=== PATIENT | male | born 1950 | race Caucasian/White ===

== ENCOUNTER 2022-07-12 15:22 | Emergency (ER) | payer OTHER ==
--- NOTE | 2022-07-12 15:52 | RAD REPORT ---
EXAM DESCRIPTION: CT - Ct Stroke Brain Wo Cont - 07/12/2022 3:43 pm CLINICAL HISTORY: STROKE ALERT COMPARISON: No comparisons TECHNIQUE: Noncontrast head CT images ad were obtained without IV contrast. Multiplanar reformats we re generated and reviewed. All CT scans are performed using dose optimization technique as appropriate and may include automated exposure control or mA/KV adjustment according to patient size. FINDINGS: No intracranial hemorrhage, mass, or edema. Midline structures are unremarkable. Normal ventricular caliber for age. Bello-white matter differentiation is preserved, without evidence of acute infarct. No abnormal extra- axial fluid collections. Mastoid air cells and visualized portions of the paranasal sinuses are clear. No acute bony findings. IMPRESSION: No evidence of an acute intracranial process. The findings were communicated to Josh Zuluaga on 07/12/2022 at 15:42 hours.
[2022-07-12 15:56] LABS: Absolute Lymphocytes (CBC) 1.9 K/uL (0.7-4.9); Hematocrit 40.1 % (39.6-49.0); Lymphocytes % 21.7 % (15.3-44.8); MCV 90.1 fL (80-100); MPV 6.9 fL (7.6-11.3); RBC Red Blood Cell Count 4.45 M/uL (4.33-5.43)
[2022-07-12 16:11] LABS: Protime INR 0.93
[2022-07-12] MEDS ORDERED: TENECTEPLASE 50 MG/10 ML VIAL IV ONE (16:14)
[2022-07-12 16:17] LABS: Potassium 4.2 mEq/L (3.5-5.1); Troponin High Sensitivity 8.2 pg/mL (<58.9)
--- NOTE | 2022-07-12 16:23 | ER ---
Nurse's Notes [facility] Name: Ronak Feliz Age: 72 yrs Sex: Male : 1950 Arrival Date: 07/12/2022 Time: 15:26 Bed 13 Private MD: Diagnosis: Ischemic stroke Presentation: 07/12 15:32 Chief complaint: EMS states: client went to sit down in the recliner and take a nap at kc6 1330 when he awake he reported leg arm, left hand, and left leg weakness, upon EMS arrival client had regained function but still reported left hand weakness. 15:32 Method Of Arrival: EMS: [facility] 15:32 Coronavirus screen: Vaccine status: Patient reports receiving the 2nd dose of the covid kc6 vaccine. Ebola Screen: No symptoms or risks identified at this time. Initial Sepsis Screen: Does the patient meet any 2 criteria? No. Patient's initial sepsis screen is negative. Does the patient have a suspected source of infection? No. Patient's initial sepsis screen is negative. 15:32 Risk Assessment: Do you want to hurt yourself or someone else? Patient reports no kc desire to harm self or others. Onset of symptoms was July 12, 2022 at 13:30. 15:32 Acuity: FARIDA 2 [facility] 15:32 An acute neurological deficit is present. The charge nurse has been notified. The 6 patients blood glucose was checked before arriving to the hospital and was found to be normal. Triage Assessment: 15:32 The onset of the patients symptoms was July 12, 2022 at 13:30. General: Appears in no kc6 apparent distress. comfortable, Behavior is calm, cooperative, appropriate for age. Pain: Denies pain. 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 Weakness in left hand(s) Gait is steady, Speech is normal, Facial droop on left, Pupils are PERRLA, Reports weakness in left hand. Stroke Activation: Symptom onset < 3 hours Physician: Stroke Attending; Name: ; Notified At: ; Arrived At: Physician: Chief Stroke Resident; Name: ; Notified At: ; Arrived At: Physician: Stroke Resident; Name: ; Notified At: ; Arrived At: Physician: ED Attending; Name: ; Notified At: ; Arrived At: Physician: ED Resident; Name: ; Notified At: ; Arrived At: Historical: - Allergies: 15:32 No Known Allergies; kc6 - PMHx: 15:32 Hypertensive disorder; kc6 - PSHx: 15:32 cardiac stents x3; kc6 - Immunization history:: Client reports receiving the 2nd dose of the Covid vaccine, Flu vaccine is not up to date. - Social history:: Smoking status: Patient denies any tobacco usage or history of. Screenin:32 [facility] ED Fall Risk Assessment (Adult) History of falling in the last 3 months, kc6 including since admission No falls in past 3 months (0 pts) Confusion or Disorientation No (0 pts) Intoxicated or Sedated No (0 pts) Impaired Gait No (0 pts) Mobility Assist Device Used No (0 pt) Altered Elimination No (0 pt) Score/Fall Risk Level 0 - 2 = Low Risk Oriented to surroundings, Maintained a safe environment, Educated pt \T\ family on fall prevention, incl call for assistance when getting out of bed, Assessed \T\ reinforced patient's understanding of fall precautions, Hourly rounding (assess needs \T\ fall precautionary measures) done. Abuse screen: Denies threats or abuse. Denies injuries from another. Nutritional screening: No deficits noted. Tuberculosis screening: No symptoms or risk factors identified. Assessment: 15:26 VAN Scoring: Arm Drift: Patients demonstrates NO arm weakness. Patient is VAN Negative. kc6 Vital Signs: 15:32 BP 167 / 88; Pulse 70; Resp 18 S; Temp 98.3(O); Pulse Ox 99% on R/A; Weight 77.11 kg kc6 (R); Height 5 ft. 7 in. (R); Pain 0/10; 15:32 Body Mass Index 26.63 (77.11 kg, 170.18 cm) kc6 15:32 Pain Scale: Adult kc6 NIH Stroke Scale Scores: 15:26 NIHSS Score: 1 kc6 ED Course: 15:26 Patient arrived in ED. kj1 15:26 Arm band placed on. kc6 15:27 Lora South RN is Primary Nurse. kc6 15:32 Patient has correct armband on for positive identification. Bed in low position. Call kc6 light in reach. Side rails up X2. Adult w/ patient. 15:33 Josh Zuluaga MD is Attending Physician. kdr 15:38 Triage completed. kc6 15:45 CT Stroke Brain w/o Contrast In Process Unspecified. EDMS 15:55 Stroke CXR 1 View In Process Unspecified. EDMS 16:16 1458 [facility] \T\ 1604 INIAITIED TRANSFER. kj1 Administered Medications: No medications were administered Point of Care Testing: Blood Glucose: 15:41 Blood Glucose: 100 mg/dL; kc6 Ranges: Outcome: 16:23 ER care complete, transfer ordered by . kdr NIH Stroke Scale - NIH Stroke Score Date: 07/12/2022 Time: 15:26 Total Score = 1 10. Dysarthria (speech clarity - read or repeat words) - 0(Normal) 11. Extinction and Inattention (visual/tactile/auditory/spatial/personal) - 0(No abnormality) 1a. Level of Consciousness (LOC) - 0(Alert) 1b. Level of Consciousness (LOC) (Month \T\ Age) - 0(Both) 1c. LOC Commands (Open \T\ Closes Eyes/Facialist) - 0(Both) 2. Best Gaze (Lateral Gaze Paresis) - 0(Normal) 3. Visual Field Loss - 0(No visual loss) 4. Facial Palsy - 1(Minor Paralysis) 5a. Left Arm: Motor (10-second hold) - 0(No drift) 5b. Right Arm: Motor (10-second hold) - 0(No drift) 6a. Left Leg: Motor (5-second hold - always test supine) - 0(No drift) 6b. Right Leg: Motor (5-second hold - always test supine) - 0(No drift) 7. Limb Ataxia (finger/nose \T\ heel/christy - test with eyes open) - 0(Absent) 8. Sensory Loss (pinprick arms/legs/face) - 0(Normal) 9. Best Language: Aphasia (description/naming/reading) - 0(No aphasia) Initials: kc6 Signatures: Dispatcher [employer] EDMS Josh Zuluaga MD MD kdr Jessica Reddy kj1 Lora South RN RN kc6
--- NOTE | 2022-07-12 16:24 | EDPHYS ---
Physician Documentation [facility] Name: Ronak Feliz Age: 72 yrs Sex: Male : 1950 Arrival Date: 07/12/2022 Time: 15:26 Bed 13 Private MD: ED Physician Josh Zuluaga HPI: 07/12 16:23 This 72 yrs old Male presents to ER via EMS with complaints of S/S of Possible Stroke. kdr Historical: - Allergies: 15:32 No Known Allergies; kc6 - PMHx: 15:32 Hypertensive disorder; kc6 - PSHx: 15:32 cardiac stents x3; kc6 - Immunization history:: Client reports receiving the 2nd dose of the Covid vaccine, Flu vaccine is not up to date. - Social history:: Smoking status: Patient denies any tobacco usage or history of. Vital Signs: 15:32 BP 167 / 88; Pulse 70; Resp 18 S; Temp 98.3(O); Pulse Ox 99% on R/A; Weight 77.11 kg kc6 (R); Height 5 ft. 7 in. (R); Pain 0/10; 15:32 Body Mass Index 26.63 (77.11 kg, 170.18 cm) kc6 15:32 Pain Scale: Adult kc6 NIH Stroke Scale Scores: 15:26 NIHSS Score: 1 kc6 MDM: 16:21 Data reviewed: vital signs, nurses notes, lab test result(s), radiologic studies. kdr Management of patient was discussed with the following: Beef Trimmer: Dr. Denis at [facility]. 16:23 Patient medically screened. kdr 07/12 15:34 Order name: EKG; Complete Time: 15:35 kdr 07/12 15:34 Order name: Accucheck; Complete Time: 15:45 kdr 07/12 15:34 Order name: Cardiac monitoring; Complete Time: 15:45 kdr 07/12 15:34 Order name: IV Saline Lock; Complete Time: 15:45 kdr 07/12 15:34 Order name: Labs collected and sent; Complete Time: 15:45 kdr 07/12 15:34 Order name: NPO; Complete Time: 15:45 kdr 07/12 15:34 Order name: O2 Per Protocol; Complete Time: 15:45 kdr 07/12 15:34 Order name: O2 Sat Monitoring; Complete Time: 15:45 kdr 07/12 15:34 Order name: Stroke Swallow Screen; Complete Time: 15:45 kdr 07/12 15:46 Order name: CT Head Angio kdr 07/12 15:34 Order name: Stroke CXR 1 View kdr 07/12 15:34 Order name: EKG - Nurse/Tech; Complete Time: 15:58 kdr 07/12 15:53 Order name: Glucose, Ancillary Testing; Complete Time: 16:01 EDMS 07/12 15:34 Order name: CT Stroke Brain w/o Contrast; Complete Time: 16:01 kdr 07/12 15:34 Order name: CBC with Diff kdr 07/12 15:34 Order name: Protime (+inr) kdr 07/12 15:34 Order name: Ptt, Activated kdr 07/12 16:10 Order name: SARS RAPID kj1 07/12 15:34 Order name: Basic Metabolic Panel kdr 07/12 15:34 Order name: High Sensitivity Troponin kdr Administered Medications: No medications were administered Point of Care Testing: Blood Glucose: 15:41 Blood Glucose: 100 mg/dL; kc6 Ranges: Critical Glucose Levels:Adult <50 mg/dl or >400 mg/dl <40 mg/dl or >180 mg/dl Disposition Summary: 07/12/22 16:23 Transfer Ordered Accepting Physician: Dr. Denis kdr Transfer Location: [facility] kdr Reason: Higher level of care kdr Condition: Serious kdr Problem: new kdr Symptoms: have improved kdr Diagnosis - Ischemic stroke kdr Forms: - Medication Reconciliation Form kdr - SBAR form kdr NIH Stroke Scale - NIH Stroke Score Date: 07/12/2022 Time: 15:26 Total Score = 1 10. Dysarthria (speech clarity - read or repeat words) - 0(Normal) 11. Extinction and Inattention (visual/tactile/auditory/spatial/personal) - 0(No abnormality) 1a. Level of Consciousness (LOC) - 0(Alert) 1b. Level of Consciousness (LOC) (Month \T\ Age) - 0(Both) 1c. LOC Commands (Open \T\ Closes Eyes/Oceanography Professor) - 0(Both) 2. Best Gaze (Lateral Gaze Paresis) - 0(Normal) 3. Visual Field Loss - 0(No visual loss) 4. Facial Palsy - 1(Minor Paralysis) 5a. Left Arm: Motor (10-second hold) - 0(No drift) 5b. Right Arm: Motor (10-second hold) - 0(No drift) 6a. Left Leg: Motor (5-second hold - always test supine) - 0(No drift) 6b. Right Leg: Motor (5-second hold - always test supine) - 0(No drift) 7. Limb Ataxia (finger/nose \T\ heel/christy - test with eyes open) - 0(Absent) 8. Sensory Loss (pinprick arms/legs/face) - 0(Normal) 9. Best Language: Aphasia (description/naming/reading) - 0(No aphasia) Initials: kc6 Signatures: Dispatcher [employer] Josh Moulton MD MD kdr Campbell, Kaitlyn, RN RN kc6
[2022-07-12 16:49] LABS: SARS-CoV-2 Antigen Rapid Res Negative (Negative)
--- NOTE | 2022-07-12 16:59 | RAD REPORT ---
EXAM DESCRIPTION: Leonid Single View07/12/2022 3:53 pm CLINICAL HISTORY: left sided weakness COMPARISON: No comparisons TECHNIQUE: Portable AP view of the chest. FINDINGS: The lungs are clear. No pneumothorax or effusion. The cardiomediastinal contours are unrem arkable. IMPRESSION: No acute cardiopulmonary process.
--- NOTE | 2022-07-12 17:37 | RAD REPORT ---
EXAM DESCRIPTION: CT - Head angio - 07/12/2022 5:08 pm CLINICAL HISTORY: WEAKNESS COMPARISON: Ct Stroke Brain Wo Cont dated 07/12/2022 TECHNIQUE: Axial CT angiography images of the head was performed with multiplanar and maximum intens ity projection reconstructions. Images performed following intravenous administration of 95 mLmL Isov ue 370. All CT scans are performed using dose optimization technique as appropriate and may include automated exposure control or mA/KV adjustment according to patient size. FINDINGS: No evidence of large vessel occlusion. No evidence of aneurysm or dissection flap is detec prateek. No flow-limiting stenosis or vascular malformation identified. Antegrade flow is seen in the vertebral arteries. The vertebral arteries are codominant. The visualized dural venous sinuses are grossly patent. IMPRESSION: No evidence of large vessel occlusion or flow-limiting stenosis.
--- NOTE | 2022-07-13 17:36 | EKG ---
Test Date: 2022-07-12 Test Time: 15:50:49 Utility Tender Carding: VIVIANA MEASUREMENT RESULTS: Intervals: Rate: 69 DC: 194 QRSD: 80 QT: 398 QTc: 426 [place]: P: 65 DC: 194 QRS: 39 T: 63 INTERPRETIVE STATEMENTS: Normal sinus rhythm Normal ECG No previous ECG available for comparison Electronically Signed On 07-13-22 17:34:59 CDT by Lencho Gaxiola
== END 2022-07-12 17:30 | disposition short-term general hospital (02) ==
LOC: ER 15:22
DX: I63.9 Cerebral infarction, unspecified (principal); I10 Essential (primary) hypertension; Z95.5 Presence of coronary angioplasty implant and graft; Z20.822 Contact with and (suspected) exposure to COVID-19
CPT/HCPCS: 85025; 80048; 36415; 85610; 82947; 85730; 84484; 70496; 70450; 71045; 87811; Q9967; J3101; 93005

== ENCOUNTER 2024-04-12 20:05 | Emergency (ER) | payer OTHER ==
[2024-04-12 20:35] LABS: Absolute Basophils 0.1 K/uL (0-0.5); Absolute Eosinophils 0.1 K/uL (0-0.5); Absolute Monocytes 0.9 K/uL (0.1-1.3); Absolute Neutrophil 5.7 K/uL (1.8-8.0); Basophils % 0.7 % (0-1.3); Eosinophils % 1.3 % (0-4.4); Hematocrit 38.6 % (39.6-49.0); Lymphocytes % 30.7 % (15.3-44.8); MCH 30.1 pg (27.0-35.0); MCHC 33.7 g/dL (32.0-36.0); MCV 89.3 fL (80-100); MPV 7.4 fL (7.6-11.3); Monocytes % 9.3 % (3.3-12.3); Platelets 269 thou/uL (152-406); RBC Red Blood Cell Count 4.32 M/uL (4.33-5.43)
[2024-04-12 20:41] LABS: Protime INR 0.98
[2024-04-12 20:55] LABS: ALT/SGPT 19 U/L (16-61); AST/SGOT 20 U/L (15-37); Albumin 3.6 g/dL (3.4-5.0); Albumin/Globulin Ratio 1.1 (1.1-1.8); Alkaline Phosphatase 57 U/L (45-117); Anion Gap 8.6 mEq/L (5.0-15.0); BUN Blood Urea Nitrogen 25 mg/dL (7-18); Bicarbonate 25 mEq/L (21-32); Bilirubin Total 0.4 mg/dL (0.2-1.0); Globulin 3.4 g/dL (2.3-3.5); Glomerular Filtration Rate 52 ml/min (=/>90); Glucose Level 139 mg/dL (74-106); Magnesium 1.7 mg/dL (1.6-2.4); NT PRO-BNP 1495 pg/mL (<450); Potassium 3.6 mEq/L (3.5-5.1); Sodium Level 141 mEq/L (136-145); Troponin High Sensitivity 16.5 pg/mL (<58.9)
[2024-04-12 21:11] LABS: Bilirubin Direct < 0.2 mg/dL (0-0.2); Bilirubin Indirect, Calculated 0.2 mg/dL (0.2-0.8)
--- NOTE | 2024-04-12 22:08 | RAD REPORT ---
EXAMINATION: ONE VIEW CHEST XR CLINICAL INDICATION: Male, 74 years old.,CHEST PAIN TECHNIQUE: Frontal chest projection is submitted. Examination is limited by patient positioning and t echnique. COMPARISON: 07/12/2022 FINDINGS: The lungs are well inflated and clear. No pneumothorax or sizable effusion. The heart is normal in s ize. Mediastinal contours are unremarkable. Implantable rhythm monitoring device present. IMPRESSION: No acute intrathoracic abnormalities.
--- NOTE | 2024-04-12 22:24 | RAD REPORT ---
EXAM: US Carotid Artery Bilateral CLINICAL INDICATION: right carotid pulses TECHNIQUE: Real-time grayscale, color flow, and spectral Doppler sonographic images were obtained of the extracranial carotid system using a linear transducer. Arterial peak systolic velocities are recorded as follows. COMPARISON: No prior exam. FINDINGS: RIGHT: Common carotid artery: 71 cm/s Internal carotid artery: 100 cm/s Right ICA/CCA ratio: 1.4 Plaque Mild irregular partially calcified plaque at the bulb External carotid artery: 108 cm/s Vertebral artery: Antegrade LEFT: Common carotid artery: 75 cm/s Internal carotid artery: 96 cm/s Left ICA/CCA ratio: 1.28 Plaque mild smooth or dominantly hypoechoic plaque at the bulb External carotid artery: 117 cm/s Vertebral artery: Antegrade IMPRESSION: No hemodynamically significant stenosis (greater than 50%) within the extracranial internal carotid a rteries. The degrees of stenosis, if any, are quantified according to the consensus statement of the Society o f Radiologists in Ultrasound (SRUS). Please refer to Justin E, Tan C, Reading G et al. Carotid Artery Stenosis: Belol-Scale and Doppler US Diagnosis--Society of Radiologists in Ultrasound Consensus Conference. Radiology. 2003;229(2):340-6. doi:10.1148/radiol.[id number]
--- NOTE | 2024-04-12 23:07 | EDPHYS ---
Physician Documentation [facility] Name: Madhu Theodore Age: 74 yrs Sex: Male : 1950 Arrival Date: 04/12/2024 Time: 20:05 Bed 4 Private MD: Izzy Lutz; Elder Otero ED Physician Jani Bassett HPI: 04/12 20:12 This 74 yrs old Male presents to ER via Unassigned with complaints of Afib. sp4 04/13 20:06 74-year-old male presents with complaint of palpitations. Patient was at the dental sp4 office today and his heart rate was registering at 30 bpm. Patient denied any other symptoms he denied dizziness or chest pain. . Historical: - Allergies: 04/12 20:31 No Known Allergies; vc1 - Home Meds: 20:31 losartan 100 mg oral tablet nightly [Active]; Brilinta 90 mg oral tablet 2 times per vc1 day [Active]; metoprolol succinate 50 mg oral Tablet, Extended Release 24 hr nightly [Active]; atorvastatin 80 mg oral tablet every day at bedtime [Active]; omeprazole 40 mg Oral capsule,delayed release (e.c.) nightly [Active]; aspirin 81 mg Oral capsule nightly [Active]; - PMHx: 20:31 Hypertensive disorder; Stroke; Atrial fibrillation; vc1 - PSHx: 20:31 cardiac stents x3; Loop Recorder (June 2022); vc1 - Immunization history:: Client reports receiving the 2nd dose of the Covid vaccine, Flu vaccine is not up to date. - Infectious Disease History:: Denies. - Social history:: Smoking status: Patient denies any tobacco usage or history of. - Family history:: not pertinent. ROS: 04/13 20:06 Constitutional: Negative for fever, chills, and weight loss, positive for palpitations sp4 All other systems are negative, Exam: 20:06 Constitutional: This is a well developed, well nourished patient who is awake, alert, sp4 and in no acute distress. Head/Face: Normocephalic, atraumatic. Eyes: Pupils equal round and reactive to light, extra-ocular motions intact. Lids and lashes normal. Conjunctiva and sclera are not injected. Cornea within normal limits. Periorbital areas with no swelling, redness, or edema. ENT: Nares patent. No nasal discharge, no septal abnormalities noted. Tympanic membranes are normal and external auditory canals are clear. Oropharynx with no redness, swelling, or masses, exudates, or evidence of obstruction, uvula midline. Mucous membranes moist. Neck: Trachea midline, no thyromegaly or masses palpated, and no cervical lymphadenopathy. Supple, full range of motion without nuchal rigidity, or vertebral point tenderness. Chest/axilla: Normal chest wall appearance and motion. Nontender with no deformity. No lesions are appreciated. Cardiovascular: Regular rate and rhythm with a normal S1 and S2. No gallops, murmurs, or rubs. Normal PMI, no JVD. No pulse deficits. Respiratory: Lungs have equal breath sounds bilaterally, clear to auscultation and percussion. No rales, rhonchi or wheezes noted. No increased work of breathing, no retractions or nasal flaring. Abdomen/GI: Soft, with normal bowel sounds. No distension or tympany. No guarding or rebound. No evidence of tenderness throughout. Back: No spinal tenderness. No costovertebral tenderness. Skin: Warm, dry with normal turgor. Normal color with no rashes, no lesions, and no evidence of cellulitis. MS/ Extremity: Pulses equal, no cyanosis. Neurovascular intact. Full, normal range of motion. Neuro: Awake and alert, GCS 15, oriented to person, place, time, and situation. Cranial nerves II-XII grossly intact. Motor strength 5/5 in all extremities. Sensory grossly intact. Psych: Awake, alert, with orientation to person, place and time. Behavior, mood, and affect are within normal limits 20:06 ECG was reviewed by the Attending Physician. EKG at 2022 sinus rhythm with multiple unifocal PVCs in a bigeminy pattern Vital Signs: 04/12 20:27 BP 160 / 71; Pulse 38; Resp 20; Pulse Ox 100% ; Weight 83.91 kg; Height 5 ft. 8 in. ; vc1 Pain 0/10; 21:24 BP 136 / 77; Pulse 70; Pulse Ox 97% on R/A; MAP 94 mmHg; Pain 0/10; tm6 22:00 BP 124 / 60; Pulse 72; Resp 16; Pulse Ox 97% on R/A; dd2 23:15 BP 134 / 65; Pulse 70; Resp 16; Temp 98.2(O); Pulse Ox 98% on R/A; dd2 20:27 Body Mass Index 28.13 (83.91 kg, 172.72 cm) vc1 20:27 Pain Scale: Adult vc1 21:24 Pain Scale: Adult tm6 Renzo Coma Score: 04/13 20:06 Eye Response: spontaneous(4). Motor Response: obeys commands(6). Verbal Response: sp4 oriented(5). Total: 15. MDM: 04/12 20:13 Medical Screening Exam initiated sp4 23:05 ED course: RADIOLOGYSERVICES REPORT Name: MADHU THEODORE Acct Number: s :1950 Age:74 Sex:M Ord Phys: Jani Bassett MD Unit Number: [id number] Prim Care Dr: Elder Otero MD Status: REG ER ER Exam Date: 04/12/24 EXAM: US Carotid Artery Bilateral CLINICAL INDICATION: right carotid pulses TECHNIQUE: Real-time grayscale, color flow, and spectral Doppler sonographic images were obtained of the extracranial carotid system using a linear transducer. Arterial peak systolic velocities are recorded as follows. COMPARISON: No prior exam. FINDINGS: RIGHT: Common carotid artery: 71 cm/s Internal carotid artery: 100 cm/s Right ICA/CCA ratio: 1.4 Plaque Mild irregular partially calcified plaque at the bulb External carotid artery: 108 cm/s Vertebral artery: Antegrade LEFT: Common carotid artery: 75 cm/s Internal carotid artery: 96 cm/s Left ICA/CCA ratio: 1.28 Plaque mild smooth or dominantly hypoechoic plaque at the bulb External carotid artery: 117 cm/s Vertebral artery: Antegrade IMPRESSION: No hemodynamically significant stenosis (greater than 50%) within the extracranial internal carotid arteries. . ED course: EXAMINATION: ONE VIEW CHEST XR CLINICAL INDICATION: Male, 74 years old.,CHEST PAIN TECHNIQUE: Frontal chest projection is submitted. Examination is limited by patient positioning and technique. COMPARISON: 07/12/2022 FINDINGS: The lungs are well inflated and clear. No pneumothorax or sizable effusion. The heart is normal in size. Mediastinal contours are unremarkable. Implantable rhythm monitoring device present. IMPRESSION: No acute intrathoracic abnormalities.. 04/13 20:06 Differential diagnosis: arrythmia, dehydration, stress disorder, PVCs. Data reviewed: sp4 vital signs, nurses notes, lab test result(s), EKG, radiologic studies, plain films. Consideration of Admission/Observation Escalation of care including admission/observation considered. ED course: Patient was discussed with his caul puller Dr. Mallory Smith who advised that frequent PVCs are not dangerous and patient may be discharged from the emergency room. Dr. Tejada office will contact patient in the morning for follow up appointment. . 04/12 20:13 Order name: Basic Metabolic Panel; Complete Time: 22:00 sp4 04/12 20:13 Order name: CBC with Diff; Complete [facility]: 22:00 [facility] 04/12 20:13 Order name: LFT's; Complete Time: 22:00 4 04/12 20:13 Order name: Magnesium; Complete Time: 22:00 4 04/12 20:13 Order name: NT PRO-BNP; Complete Time: 22:00 4 04/12 20:13 Order name: PT-INR; Complete Time: 22:00 4 04/12 20:13 Order name: Troponin HS; Complete Time: 22:00 [facility] 04/12 20:13 Order name: XRAY Chest (1 view); Complete Time: 22:57 sp4 04/12 20:52 Order name: Carotid Artery Bilateral US; Complete Time: 22:57 4 04/12 20:13 Order name: Cardiac monitoring; Complete Time: 20:26 [facility] 04/12 20:13 Order name: EKG - Nurse/Tech; Complete Time: 20:26 4 04/12 20:13 Order name: IV Saline Lock; Complete Time: 20:26 4 04/12 20:13 Order name: Labs collected and sent; Complete Time: 20:26 4 04/12 20:13 Order name: O2 Per Protocol; Complete Time: 20:26 4 04/12 20:13 Order name: O2 Sat Monitoring; Complete Time: 20:26 sp4 EC:06 Rate is 80 beats/min. Rhythm is regular, Sinus Rhythm with Unifocal PVCs. QRS [place] is sp4 Normal. [place] interval is normal. QRS interval is normal. QT interval is normal. No Q waves. T waves are Normal. No ST changes noted. Clinical impression: No evidence of ischemia. Interpreted by me. Reviewed by me. Administered Medications: No medications were administered Disposition Summary: 04/12/24 23:06 Discharge Ordered Problem: new sp4 Symptoms: have improved sp4 Condition: Stable sp4 Diagnosis - Ventricular premature depolarization sp4 - Frequent unifocal premature ventricular contractions in bigeminy pattern sp4 Followup: sp4 - With: Luis Tejada MD - When: Tomorrow - Reason: Recheck today's complaints Discharge Instructions: - Discharge Summary Sheet sp4 - Premature Ventricular Contraction sp4 Forms: - Patient Portal Instructions sp4 Signatures: Dispatcher [employer] EDMS Becky Adams RN RN vc1 Jani Bassett MD MD sp4 Corrections: (The following items were deleted from the chart) 04/12 20:13 20:13 BASIC METABOLIC PANEL+C.LAB.BRZ ordered. EDMS EDMS 20:13 20:13 CBC+H.LAB.BRZ ordered. EDMS EDMS 20:13 20:13 HEPATIC FUNCTION+C.LAB.BRZ ordered. EDMS EDMS 20:13 20:13 MAGNESIUM+C.LAB.BRZ ordered. EDMS EDMS 20:13 20:13 PROBNP+C.LAB.BRZ ordered. EDMS EDMS 20:13 20:13 PROTIME (+INR)+COAG.LAB.BRZ ordered. EDMS EDMS 20:13 20:13 Troponin High Sensitivity+C.LAB.BRZ ordered. EDMS EDMS 20:13 20:13 Chest Single View+RAD.RAD.BRZ ordered. EDMS EDMS
--- NOTE | 2024-04-12 23:07 | ER ---
Nurse's Notes [facility] Name: Roank Feliz Age: 74 yrs Sex: Male : 1950 Arrival Date: 04/12/2024 Time: 20:05 Bed 4 Private MD: Izzy Lutz; Elder Otero Diagnosis: Ventricular premature depolarization;Frequent unifocal premature ventricular contractions in bigeminy pattern Presentation: 04/12 20:27 Chief complaint: Patient states: At dentist today they told me my heart rate kept vc1 dropping into the 30's. I am feeling palpitations and a little SOB. Coronavirus screen: Client denies travel out of the [place] in the last 14 days. At this time, the client does not indicate any symptoms associated with coronavirus-19. Ebola Screen: Patient negative for fever greater than or equal to 101.5 degrees Fahrenheit, and additional compatible Ebola Virus Disease symptoms Patient denies exposure to infectious person. Patient denies travel to an Ebola-affected area in the 21 days before illness onset. No symptoms or risks identified at this time. Initial Sepsis Screen: Does the patient meet any 2 criteria? No. Patient's initial sepsis screen is negative. Does the patient have a suspected source of infection? No. Patient's initial sepsis screen is negative. Risk Assessment: Do you want to hurt yourself or someone else? Patient reports no desire to harm self or others. Onset of symptoms was April 12, 2024. Care prior to arrival: None. Activity prior to arrival: None. Mechanism of Injury: No Mechanism of Injury. Transition of care: patient was not received from another setting of care. 20:27 Method Of Arrival: Ambulatory vc1 20:27 Acuity: FARIDA 3 vc1 Triage Assessment: 20:36 General: Appears in no apparent distress. Behavior is cooperative, anxious. Pain: vc1 Denies pain. EENT: No deficits noted. No signs and/or symptoms were reported regarding the EENT system. Neuro: Level of Consciousness is awake, alert, obeys commands, Oriented to person, place, time, situation, Appropriate for age. Cardiovascular: Reports palpitations, shortness of breath, Denies chest pain, Capillary refill < 3 seconds JVD is present on right Patient's skin is warm and dry. Respiratory: Airway is patent Respiratory effort is even, unlabored, Respiratory pattern is regular, symmetrical. GI: No deficits noted. No signs and/or symptoms were reported involving the gastrointestinal system. : No deficits noted. No signs and/or symptoms were reported regarding the genitourinary system. Derm: Skin is intact, is healthy with good turgor, Skin is dry, Skin is normal, Skin temperature is warm. Musculoskeletal: Circulation, motion, and sensation intact. Capillary refill < 3 seconds, Range of motion: intact in all extremities. Historical: - Allergies: 20:31 No Known Allergies; vc1 - Home Meds: 20:31 losartan 100 mg oral tablet nightly [Active]; Brilinta 90 mg oral tablet 2 times per vc1 day [Active]; metoprolol succinate 50 mg oral Tablet, Extended Release 24 hr nightly [Active]; atorvastatin 80 mg oral tablet every day at bedtime [Active]; omeprazole 40 mg Oral capsule,delayed release (e.c.) nightly [Active]; aspirin 81 mg Oral capsule nightly [Active]; - PMHx: 20:31 Hypertensive disorder; Stroke; Atrial fibrillation; vc1 - PSHx: 20:31 cardiac stents x3; Loop Recorder (June 2022); vc1 - Immunization history:: Client reports receiving the 2nd dose of the Covid vaccine, Flu vaccine is not up to date. - Infectious Disease History:: Denies. - Social history:: Smoking status: Patient denies any tobacco usage or history of. - Family history:: not pertinent. Screenin:29 [facility] ED Fall Risk Assessment (Adult) History of falling in the last 3 months, tm6 including since admission No falls in past 3 months (0 pts) Confusion or Disorientation No (0 pts) Intoxicated or Sedated No (0 pts) Impaired Gait No (0 pts) Mobility Assist Device Used No (0 pt) Altered Elimination No (0 pt) Score/Fall Risk Level 0 - 2 = Low Risk Oriented to surroundings, Maintained a safe environment, Educated pt \T\ family on fall prevention, incl call for assistance when getting out of bed. Abuse screen: Denies threats or abuse. Denies injuries from another. Nutritional screening: No deficits noted. Tuberculosis screening: No symptoms or risk factors identified. Assessment: 20:37 General: Appears in no apparent distress. Behavior is calm, cooperative. Pain: Denies tm6 pain. Neuro: Level of Consciousness is awake, alert, obeys commands, Oriented to person, place, time, situation. Cardiovascular: Reports palpitations, shortness of breath, Patient's skin is warm and dry. Respiratory: Reports shortness of breath Airway is patent Respiratory effort is even, unlabored, Respiratory pattern is regular, symmetrical. GI: No signs and/or symptoms were reported involving the gastrointestinal system. Abdomen is round non-distended. : No signs and/or symptoms were reported regarding the genitourinary system. EENT: No signs and/or symptoms were reported regarding the EENT system. Derm: No signs and/or symptoms reported regarding the dermatologic system. Musculoskeletal: No signs and/or symptoms reported regarding the musculoskeletal system. 21:25 Reassessment: Patient and/or family updated on plan of care and expected duration. Pain tm6 level reassessed. Patient is alert, oriented x 3, equal unlabored respirations, skin warm/dry/pink. Vital Signs: 20:27 BP 160 / 71; Pulse 38; Resp 20; Pulse Ox 100% ; Weight 83.91 kg; Height 5 ft. 8 in. ; vc1 Pain 0/10; 21:24 BP 136 / 77; Pulse 70; Pulse Ox 97% on R/A; MAP 94 mmHg; Pain 0/10; tm6 22:00 BP 124 / 60; Pulse 72; Resp 16; Pulse Ox 97% on R/A; dd2 23:15 BP 134 / 65; Pulse 70; Resp 16; Temp 98.2(O); Pulse Ox 98% on R/A; dd2 20:27 Body Mass Index 28.13 (83.91 kg, 172.72 cm) vc1 20:27 Pain Scale: Adult vc1 21:24 Pain Scale: Adult tm6 Renzo Coma Score: 04/13 20:06 Eye Response: spontaneous(4). Motor Response: obeys commands(6). Verbal Response: sp4 oriented(5). Total: 15. ED Course: 04/12 20:11 Patient arrived in ED. gm2 20:11 Izzy Lutz MD is Private Physician. gm2 20:11 Elder Otero MD is Private Physician. gm2 20:12 Jani Bassett MD is Attending Physician. sp4 20:25 Elizabeth Flores, RN is Primary Nurse. tm6 20:25 Radiology exam delayed due to pt was being worked on. az 20:26 Inserted saline lock: 20 gauge in right antecubital area, using aseptic technique. tm6 Blood collected. Flushed with 10 mL NS. 20:26 Basic Metabolic Panel Sent. tm6 20:26 CBC with Diff Sent. tm6 20:26 LFT's Sent. tm6 20:26 Magnesium Sent. tm6 20:26 NT PRO-BNP Sent. tm6 20:26 PT-INR Sent. tm6 20:26 Troponin HS Sent. tm6 20:26 EKG done, by ED staff, reviewed by Jani Bassett MD. tm6 20:29 Patient has correct armband on for positive identification. Placed in gown. Bed in low tm6 position. Call light in reach. Side rails up X 1. Provided Education on: use of call patrick. Client placed on continuous cardiac and pulse oximetry monitoring. NIBP monitoring applied. desk monitor on. Pulse ox on. NIBP on. Door closed. Noise minimized. Warm blanket given. Pillow given. 20:31 Triage completed. vc1 20:37 Arm band placed on right wrist. vc1 21:27 XRAY Chest (1 view) In Process Unspecified. EDMS 21:27 Carotid Artery Bilateral US In Process Unspecified. EDMS 22:32 No provider procedures requiring assistance completed. dd2 23:06 Luis Tejada MD is Referral Physician. sp4 23:21 IV discontinued, intact, bleeding controlled, No redness/swelling at site. Pressure dd2 dressing applied. Administered Medications: No medications were administered Medication: 20:38 VIS not applicable for this client. vc1 Outcome: 23:06 Discharge ordered by . sp4 23:21 Discharged to home ambulatory, dd2 23:21 Condition: stable 23:21 Discharge instructions given to patient, family, Instructed on discharge instructions, follow up and referral plans. Demonstrated understanding of instructions, follow-up care, 23:22 Patient left the ED. dd2 Signatures: Dispatcher [employer] EDMS Imani Allen Vanessa, RN RN vc1 Jani Bassett MD MD sp4 Elysia Germain 2 Elizabeth lFores RN RN tm6 LENA, SJ, RN RN dd2
[2024-04-12 23:49] VITALS: BP 134/65; TEMP 98.2; O2SAT 98
== END 2024-04-12 23:22 | disposition home or self-care (01) ==
LOC: ER 20:05
DX: I49.3 Ventricular premature depolarization (principal); I48.91 Unspecified atrial fibrillation; I10 Essential (primary) hypertension; Z86.73 Personal history of transient ischemic attack (TIA), and cerebral infarction without residual deficits; Z95.5 Presence of coronary angioplasty implant and graft; Z79.82 Long term (current) use of aspirin; Z79.899 Other long term (current) drug therapy
CPT/HCPCS: 36415; 71045; 80048; 80076; 83735; 83880; 84484; 85025; 85610; 93880